=== PATIENT | female | born 1995 | race Caucasian/White ===

== ENCOUNTER → 2016-11-06 | Outpatient (CLI) | payer OTHER ==
[~2016-11-06] MED LIST: MEDROL DOSEPAK4 MG PO; PRENATAL1 TA3 PO
== END | disposition home or self-care (01) ==
LOC: US 14:00
DX: Z34.01 Encounter for supervision of normal first pregnancy, first trimester (principal); Z3A.00 Weeks of gestation of pregnancy not specified

== ENCOUNTER 2016-12-30 08:20 | Emergency (ER) | payer OTHER ==
[~2016-12-30] VITALS: Ht 165.1 cm; Wt 77.6 kg
[2016-12-30 09:07] LABS: BILIRUBIN NEGATIVE (NEGATIVE); BLOOD 1+ (NEGATIVE); CLARITY SL CLOUDY (CLEAR); COLOR YELLOW (YELLOW); GLUCOSE NEGATIVE (NEGATIVE); KETONE 2+ (NEGATIVE); LEUKO ESTERASE NEGATIVE (NEGATIVE); NITRITE NEGATIVE (NEGATIVE); PROTEIN 1+ (NEGATIVE); SPECIFIC GRAVITY 1.025 (1.005-1.030); UROBILINOGEN 0.2 E.U./dl (0.2-1.0)
[2016-12-30 09:09] LABS: URINE REFLEX COMMENT YES (NO)
[2016-12-30 09:15] LABS: BACTERIA 1+; MUCOUS 2+
[2016-12-30] MEDS ORDERED: MIRALAX POWDER17 G1 PO (11:11)
== END 2016-12-30 11:16 | disposition home or self-care (01) ==
LOC: ED 08:20
PROVIDERS: Emergency Medicine
DX: O99.611 Diseases of the digestive system complicating pregnancy, first trimester (principal); K59.00 Constipation, unspecified; N76.5 Ulceration of vagina; L98.419 Non-pressure chronic ulcer of buttock with unspecified severity; Z3A.14 14 weeks gestation of pregnancy; F17.200 Nicotine dependence, unspecified, uncomplicated

== ENCOUNTER → 2017-01-29 | Outpatient (CLI) | payer OTHER ==
[~2017-01-29] MED LIST changes: +MIRALAX POWDER17 G1 PO
== END | disposition home or self-care (01) ==
LOC: US 14:54
DX: O32.2XX0 Maternal care for transverse and oblique lie, not applicable or unspecified (principal); Z3A.18 18 weeks gestation of pregnancy

== ENCOUNTER 2018-01-13 12:25 | Emergency (ER) | payer OTHER ==
[~2018-01-13] VITALS: Ht 167.6 cm; Wt 79.4 kg
[2018-01-13] MEDS ORDERED: IBU800 M1 PO (12:30)
[2018-01-13] MEDS ORDERED: CLEOCIN HCL300 MG PO (13:10)
[2018-01-13] MEDS ORDERED: Peridex 473 ML473 ML PO (13:10)
== END 2018-01-13 13:12 | disposition home or self-care (01) ==
LOC: ED 12:25
DX: K08.89 Other specified disorders of teeth and supporting structures (principal); Z79.899 Other long term (current) drug therapy

== ENCOUNTER 2018-07-29 11:26 | Emergency (ER) | payer SELFPAY ==
[~2018-07-29] VITALS: Ht 167.6 cm; Wt 81.6 kg
[~2018-07-29 11:26] MED LIST changes: +CLEOCIN HCL300 MG PO; +IBU800 M1 PO; +Peridex 473 ML473 ML PO
[2018-07-29] MEDS ORDERED: FLONASE ALLERG9.9 ML NAS (11:54)
[2018-07-29] MEDS ORDERED: ZITHROMAX250 MG PO (11:54)
[2018-07-29] MEDS ORDERED: ZYRTEC10 MG PO (11:54)
== END 2018-07-29 12:03 | disposition home or self-care (01) ==
LOC: ED 11:26
DX: J01.90 Acute sinusitis, unspecified (principal); J20.9 Acute bronchitis, unspecified; F17.210 Nicotine dependence, cigarettes, uncomplicated; Z79.899 Other long term (current) drug therapy

== ENCOUNTER 2018-08-24 15:29 | Emergency (ER) | payer SELFPAY ==
[~2018-08-24] VITALS: Ht 167.6 cm; Wt 79.4 kg
[~2018-08-24 15:29] MED LIST changes: +FLONASE ALLERG9.9 ML NAS; +ZITHROMAX250 MG PO; +ZYRTEC10 MG PO
[2018-08-24] MEDS ORDERED: NAPROSYN500 MG PO (17:34)
[2018-08-24] MEDS ORDERED: MEDROL DOSEPAK4 MG PO (17:34)
[2018-08-24] MEDS ORDERED: ROBAXIN500 M1 PO (17:34)
[2018-09-30] MEDS ORDERED: ZOFRAN4 MG PO (18:06)
== END 2018-08-24 17:31 | disposition home or self-care (01) ==
LOC: ED 15:29
DX: S16.1XXA Strain of muscle, fascia and tendon at neck level, initial encounter (principal); S39.012A Strain of muscle, fascia and tendon of lower back, initial encounter; X58.XXXA Exposure to other specified factors, initial encounter; Y93.89 Activity, other specified; Y92.89 Other specified places as the place of occurrence of the external cause; Y99.8 Other external cause status

== ENCOUNTER 2019-08-14 17:18 | Emergency (ER) | payer SELFPAY ==
[~2019-08-14] VITALS: Ht 167.6 cm; Wt 79.4 kg
[~2019-08-14 17:18] MED LIST changes: +DICYCLOMINE HCL10 MG PO; +NAPROSYN500 MG PO; +ROBAXIN500 M1 PO; +ZOFRAN4 MG PO
[2019-08-14] MEDS ORDERED: AUGMENTIN 875-875 MG PO (19:25)
== END 2019-08-14 19:29 | disposition home or self-care (01) ==
LOC: ED 17:18
DX: J01.90 Acute sinusitis, unspecified (principal); F17.200 Nicotine dependence, unspecified, uncomplicated; Z79.899 Other long term (current) drug therapy

== ENCOUNTER 2020-02-08 19:23 | Emergency (ER) | payer OTHER ==
[~2020-02-08] VITALS: Ht 167.6 cm; Wt 74.8 kg
[~2020-02-08 19:23] MED LIST changes: +AUGMENTIN 875-875 MG PO
== END 2020-02-08 23:58 | disposition home or self-care (01) ==
LOC: ED 19:23
DX: S60.222A Contusion of left hand, initial encounter (principal); S10.93XA Contusion of unspecified part of neck, initial encounter; M79.661 Pain in right lower leg; M79.662 Pain in left lower leg; Z88.0 Allergy status to penicillin; Y08.89XA Assault by other specified means, initial encounter; Y93.89 Activity, other specified; Y92.89 Other specified places as the place of occurrence of the external cause; Y99.8 Other external cause status

== ENCOUNTER 2020-03-28 21:52 | Emergency (ER) | payer OTHER ==
[~2020-03-28] VITALS: Ht 167.6 cm; Wt 83.5 kg
[2020-03-29 01:52] LABS: CLARITY CLEAR (CLEAR); COLOR YELLOW (YELLOW)
[2020-03-29 01:54] LABS: BILIRUBIN NEGATIVE (NEGATIVE); GLUCOSE NEGATIVE (NEGATIVE); KETONE NEGATIVE (NEGATIVE)
[2020-03-29 01:55] LABS: BLOOD NEGATIVE (NEGATIVE); LEUKO ESTERASE NEGATIVE (NEGATIVE); NITRITE NEGATIVE (NEGATIVE); UROBILINOGEN 0.2 E.U./dl (0.2-1.0)
[2020-03-29 01:59] LABS: BACTERIA 1+; RBC 0-2 rbc/hpf (0-2)
== END 2020-03-29 00:47 | disposition left against medical advice (07) ==
LOC: ED 21:52
PROVIDERS: Emergency Medicine
DX: Z02.79 Encounter for issue of other medical certificate (principal); F17.200 Nicotine dependence, unspecified, uncomplicated; Z88.0 Allergy status to penicillin